=== PATIENT | male | born 1985 | race Caucasian/White ===

== ENCOUNTER 2019-03-05 17:56 | Inpatient (IN) ==
--- NOTE | 2019-03-05 18:34 | Emergency Department Note ---
Disposition Clinical Impression: Choledocholithiasis Pancreatitis Qualifiers: Chronicity: acute Pancreatitis type: biliary Acute pancreatitis complication: unspecified Qualified Code(s): K85.10 - Biliary acute pancreatitis without necrosis or infection Disposition: Admitted As Inpatient Condition: Fair Forms: ED Satisfaction Letter, Work/School Release Time of Disposition: 20:21 Abdominal Pain HPI - General Chief Complaint: ED Abdominal Pain Stated Complaint: abd pain Time Seen by Provider: 03/05/19 18:18 Source: patient, family Mode of arrival: private vehicle Limitations: no limitations Nursing Notes Reviewed: Yes Vital Signs Reviewed: Yes - History of Present Illness HPI Narrative: Patient notes ongoing epigastric pain for 6 months. Pain is not daily and waxes and wanes. Localized to his epigastrium. He does occasionally note in indigestion-like sensation with acid radiating into his chest. He previously was prescribed Zantac and Carafate with only modest relief He has previously had a gallbladder ultrasound and upper endoscopy. The latter of which showed "inflammation." Just prior to arrival the patient had excruciating epigastric pain that brought him to his knees. He states he became diaphoretic and had tingling in his extremities. Pain has mostly improved Pt Subjective Complaint: abdominal pain Onset (ago): month(s) Consistency: intermittent Location: epigastric Pain Severity: severe Pain Scale: 4 Quality: aching, sharp Radiation: none Migration to: other (Chest) Improves with: nothing Worsens with: other (Was made worse with dairy products previously) Associated symptoms: Reports: denies other symptoms Treatments prior to arrival: other (H2-blockers and Carafate prescribed previously.) - Related Data Previous Rx's Medication Instructions Recorded Cyclobenzaprine [Flexeril] 10 mg PO TID PRN #15 tablet 12/25/16 Ibuprofen [Motrin] 600 mg PO Q8HR PRN #20 tab 12/25/16 Allergies Allergy/AdvReac Type Severity Reaction Status Date / Time No Known Allergies Allergy Verified 04/07/17 16:14 All systems ED: reviewed and negative except as stated. Constitutional: Reports: weight change Eyes: Reports: as per HPI ENT ED: Reports: as per HPI Cardiovascular: Reports: as per HPI Respiratory: Reports: as per HPI Gastrointestinal: Reports: abdominal pain Genitourinary: Reports: as per HPI. Denies: testicular pain Musculoskeletal: Reports: as per HPI Integumentary: Reports: as per HPI Neurological: Reports: paresthesias Psychiatric: Reports: as per HPI Endocrine: Reports: as per HPI Hematological/Lymphatic: Reports: as per HPI Allergic/Immunologic: Reports: as per HPI Abdominal Pain PMH - Past Medical History Medical history: Reports: no medical history Male Surgical History: Reports: vasectomy, other Psychiatric history: Reports: no psych history - Social History Smoking status: Current some day smoker Alcohol use: Reports: rarely Drug use: Reports: marijuana, methamphetamine, IV Drug Use, prescription drug abuse, other Physical Exam - General Limitations: no limitations General appearance: alert - Head Head exam: atraumatic - Eye Eye exam: Present: normal appearance - ENT ENT exam: normal exam - Neck Neck exam: Present: normal inspection, full ROM - Chest Chest inspection: Present: normal inspection, symmetric chest wall rise - Respiratory Respiratory exam: Present: normal lung sounds bilaterally - Cardiovascular Cardiovascular exam: Present: regular rate, normal rhythm - Abdominal Exam Abdominal exam: Present: soft, Non-Tender, normal bowel sounds. Absent: tenderness, distention, guarding, rebound - Rectal Exam Rectal exam: Present: deferred - Extremities Exam Extremities exam: Present: normal inspection - Neurological Exam Neurological exam: Present: alert, oriented X3, CN II-XII intact - Psychiatric Psychiatric exam: Present: flat affect - Skin Skin exam: Present: warm, dry, intact Course Course Narrative: Patient presents with ongoing epigastric abdominal pain. He has a benign exam but seems frustrated due to the chronicity of his discomfort. He states it is interfering with his ability to eat and he is now losing weight. I favor gastritis versus peptic ulcer disease as the etiology of his symptoms. His recent upper endoscopy within the past 6 months results are not available as they were performed at an outside hospital. This is also true for his gallbladder ultrasound. During today's visit I have offered lab query with attention to pancreatic enzyme. I will also perform a CT scan of his abdomen and pelvis. Analgesics were offered but declined Vital Signs Temperature 97.8 F 03/05/19 18:06 Pulse Rate 70 03/05/19 18:06 Respiratory Rate 14 03/05/19 18:06 Blood Pressure 100/67 03/05/19 18:06 O2 Sat by Pulse Oximetry 99 03/05/19 18:06 Temperature 97.8 F 03/05/19 18:33 Pulse Rate 70 03/05/19 18:33 Respiratory Rate 14 03/05/19 18:33 Blood Pressure 100/67 03/05/19 18:33 O2 Sat by Pulse Oximetry 99 03/05/19 18:33 Oxygen Delivery Oxygen Delivery Room Air Abdominal Pain - Medical Records Medical records reviewed: Yes I reviewed the patient's medical records. - Lab Data Lab results reviewed: Yes I reviewed the patient's lab results. Result diagrams: 03/05/19 19:06 03/05/19 19:06 Lab Results 03/05/19 03/05/19 Range/Units 19:06 19:06 WBC 10.1 (4.3-11.1) K/mcL RBC 4.66 (4.19-5.50) M/mcL Hgb 13.4 (12.9-16.9) g/dL Hct 41.0 (37.5-50.1) % MCV 88.0 (83.0-100.0) fL MCH 28.8 (28.0-33.3) pg MCHC 32.7 (31.6-35.5) g/dL RDW 12.9 (11.5-14.5) % Plt Count 190 (140-400) K/mcL MPV 10.1 (9.4-12.4) fL Immature Gran % 0.3 (0-4) % Seg Neutrophils % 81.2 % Lymphocytes % 8.7 % Monocytes % 9.0 % Eosinophils % 0.4 % Basophils % 0.4 % Neutrophils # 8.2 (1.6-8.9) K/mcL Lymphocytes # 0.9 (0.6-4.6) K/mcL Monocytes # 0.9 (0.0-1.3) K/mcL Eosinophils # 0.0 (0.0-0.6) K/mcL Basophils # 0.0 (0.0-0.2) K/mcL Sodium 138 (136-145) mEq/L Potassium 3.8 (3.5-5.1) mEq/L Chloride 103 (98-107) mEq/L Carbon Dioxide 30 H (23-29) mEq/L BUN 18 (6-20) mg/dL Creatinine 0.79 (0.70-1.30) mg/dL Est GFR ( Amer) > 60 (> 60) Est GFR (Non-Af Amer) > 60 (> 60) BUN/Creatinine Ratio 23 (6-26) Glucose 91 (70-105) mg/dL Calculated Osmolality 287 (280-300) Calcium 9.7 (8.6-10.3) mg/dL Total Bilirubin 1.7 H (0.3-1.0) mg/dL AST 79 H (13-39) Units/L ALT 167 H (7-52) Units/L Alkaline Phosphatase 134 H (34-104) Units/L Serum Total Protein 7.3 (6.4-8.9) g/dL Albumin 4.5 (3.5-5.7) g/dL Globulin 2.8 (2.4-3.5) g/dL Albumin/Globulin Ratio 1.6 (1.1-2.2) Lipase > 1800 H (11-82) Units/L - Radiology Data Radiology results reviewed: Yes I reviewed the patient's radiology results.
[2019-03-05 19:32] LABS: Basophils % 0.4 %; Eosinophils % 0.4 %; Hemoglobin 13.4 g/dL (12.9-16.9); Immature Granulocytes % 0.3 % (0-4); Lymphocytes # 0.9 K/mcL (0.6-4.6); Lymphocytes % 8.7 %; Mean Corpuscular HGB Conc 32.7 g/dL (31.6-35.5); Mean Corpuscular Hemoglobin 28.8 pg (28.0-33.3); Mean Platelet Volume 10.1 fL (9.4-12.4); Monocytes # 0.9 K/mcL (0.0-1.3); Neutrophils # 8.2 K/mcL (1.6-8.9); Platelet Count 190 K/mcL (140-400); Red Blood Count 4.66 M/mcL (4.19-5.50); Red Cell Distribution Width 12.9 % (11.5-14.5); Segmented Neutrophils % 81.2 %; White Blood Count 10.1 K/mcL (4.3-11.1)
[2019-03-05 19:47] LABS: Alanine Aminotransferase 167 Units/L (7-52); Albumin 4.5 g/dL (3.5-5.7); Albumin/Globulin Ratio 1.6 (1.1-2.2); Alkaline Phosphatase 134 Units/L (34-104); Aspartate Amino Transferase 79 Units/L (13-39); BUN/Creatinine Ratio 23 (6-26); Bilirubin,Total 1.7 mg/dL (0.3-1.0); Blood Urea Nitrogen 18 mg/dL (6-20); Calcium 9.7 mg/dL (8.6-10.3); Carbon Dioxide 30 mEq/L (23-29); Chloride 103 mEq/L (98-107); Globulin 2.8 g/dL (2.4-3.5); Glucose 91 mg/dL (70-105); Osmolality,Calculated 287 (280-300); Potassium 3.8 mEq/L (3.5-5.1); Sodium 138 mEq/L (136-145); Total Protein 7.3 g/dL (6.4-8.9); eGFR For African Americans > 60 (> 60); eGFR For Non-African Americans > 60 (> 60)
[2019-03-05 19:59] LABS: Lipase > 1800 Units/L (11-82)
[2019-03-05] MEDS ORDERED: Ondansetron 4 MG/2 ML VIAL IVP PRN (21:00)
[2019-03-05] MEDS ORDERED: Ketorolac 30 MG/ML VIAL IVP PRN (21:01)
[2019-03-05] MEDS ORDERED: OXYCODONE Oral CONC 10 MG/0.5 ML ORAL.SYG SL PRN (21:01)
[2019-03-05] MEDS ORDERED: Naloxone 0.4 MG/ML INJ IVP PRN (21:01)
[2019-03-05 21:34] LABS: Ethanol < 10 mg/dL (Less than 10)
[2019-03-05 21:44] LABS: Amphetamine Screen,Urine Negative ng/mL (Cutoff=1000); Barbiturate Screen,Urine Negative ng/mL (Cutoff=200); Benzodiazepines Screen,Urine Negative ng/mL (Cutoff=200); Cannabinoid Screen,Urine Negative ng/mL (Cutoff = 50); Cocaine Screen,Urine Negative ng/mL (Cutoff= 300); Opiate Screen,Urine Negative ng/mL (Cutoff=300); Phencyclidine Screen,Urine Negative ng/mL (Cutoff=25)
--- NOTE | 2019-03-05 22:02 | Internal Med History&Physical ---
Date of Encounter: 03/05/19 Time of Encounter: 22:01 Internal Medicine - H&P: HPI Chief complaint: abdominal pain Admitted From: Home Plans for Post Hospital Care: Home History of present illness: Florin Peterson is a 33 year man who has been dealing with abdominal pain for the past 6 months, predominantly epigastric and occasionally in the right upper quadrant. It is frequently postprandial which has caused some weight loss from avoidance of food. It is occasionally associated with nausea. He takes OTC antacids for relief usually. He reports having undergone endoscopy and ultrasound for evaluation of this problem but were unrevealing. He came in today with an acute episode of severe epigastalgia that led him to become diaphoretic. He says it has been present for the past 4 days but this morning it hit him severely and knocked him down to his knees associated with tingling in his extremities, chills and feeling cold. In the ER he declined analgesics as it had improved but lab work revealed a lipase >1800. CT done was non-contrast and did not identify any anomalies however gallbladder ultrasound confirmed cholelithiasis. He is admitted for further care. No fever or chills reported. Vitals: Reviewed General: Well-developed, NAD Skin: Warm and dry. HEENT: Moist mucous membranes. No conjunctivae pallor. Neck: No lymphadenopathy. No JVD. No carotid bruits. No palpable thyroid. Chest: Normal thoracic expansion. Normal breath sounds. Clear to auscultation. Heart: Normal S1 & S2; rhythmic. No rubs or murmurs. Abdomen: Non-distended, soft and non-tender to palpation. No peritoneal react ion. Extremities: No clubbing, cyanosis or edema. No calf tenderness. Normal distal pulses. Neurological: Awake, alert and oriented to person, place and time. No focal deficits. Psych: Affect appropriate. Assessment/Plan 1. Acute pancreatitis: Patient denies alcohol use and therefore is not likely a trigger; will get a level to corroborate. Will also check triglyceride level. He has cholelithiasis on ultrasound and the pain has been intermittent for m onths so it is possible that he may be passing stones transiently and now has biliary pancreatitis. He will benefit from subsequent elective cholecystectomy. In the meantime, will provide fluid resuscitation, pain control, anti-emetics and advance diet as tolerated. 2. Hepatitis C: Cleared after treatment. Has SVR. 3. Substance use disorder: Denies recent use. Will check a UDS. 4. DVT prophylaxis: Ordered. Past Med Surg Social Fam HX - Past Medical History Medical history: no medical history Psychiatric history: no psych history - Past Surgical History Additional surgical history: wisdom teeth - Social History Smoking Status: Current some day smoker Smokeless Tobacco Status: Yes Alcohol use: rarely Drug use: marijuana, methamphetamine, IV Drug Use, prescription drug abuse, other Internal Medicine - H&P: Meds Cyclobenzaprine [Flexeril] 10 mg PO TID PRN #15 tablet 12/25/16 [Rx] Ibuprofen [Motrin] 600 mg PO Q8HR PRN #20 tab 12/25/16 [Rx] Allergy/AdvReac Type Severity Reaction Status Date / Time No Known Allergies Allergy Verified 04/07/17 16:14 All Systems PM: A 10-system review of systems was performed and is negative for pertinent findings except as documented above in the HPI. Family history reviewed and found non-contributory. - Constitutional Vitals: Temp Pulse Resp BP Pulse Ox 97.8 F 70 16 108/70 99 03/05/19 18:33 03/05/19 18:33 03/05/19 21:48 03/05/19 21:48 03/05/19 18:33 Exam: . Internal Med - H&P Results - Labs CBC & Chem 7: 03/05/19 19:06 03/05/19 19:06 Labs: Short CBC 03/05/19 Range/Units 19:06 WBC 10.1 (4.3-11.1) K/mcL Hgb 13.4 (12.9-16.9) g/dL Hct 41.0 (37.5-50.1) % Plt Count 190 (140-400) K/mcL Neutrophils # 8.2 (1.6-8.9) K/mcL BMP 03/05/19 19:06 Sodium 138 Potassium 3.8 Chloride 103 Carbon Dioxide 30 H BUN 18 Creatinine 0.79 Glucose 91 Calcium 9.7 Liver Function 03/05/19 Range/Units 19:06 Total Bilirubin 1.7 H (0.3-1.0) mg/dL AST 79 H (13-39) Units/L ALT 167 H (7-52) Units/L Alkaline Phosphatase 134 H (34-104) Units/L Albumin 4.5 (3.5-5.7) g/dL - Impressions ITS Impressions Abdomen/Pelvis CT 03/05/19 18:30 IMPRESSION: Punctate nonobstructing calculus mid to lower pole left kidney otherwise negative noncontrast CT examination with no evidence of obstructive uropathy or other acute process including normal appendix. D/ / Kirill Coughlin MD / Kirill Coughlin MD Interpreting Provider: Kirill Coughlin MD Gallbladder Ultrasound 03/05/19 19:50 IMPRESSION: Cholelithiasis as described, otherwise negative right upper quadrant ultrasound. D/ / Kirill Coughlin MD / Kirill Coughlin MD Interpreting Provider: Kirill Coughlin MD - Time Spent With Patient Total time spent is greater than 50% in coordination of care (as documented) at patient's floor/unit and/or counseling patient: Greater than 35 minutes
[2019-03-05] MEDS: Ringers Solution, Lactated 1,000 ML IVC SCH (23:38)
[2019-03-06] MEDS: Ringers Solution, Lactated 1,000 ML IVC SCH ×4 (04:43→20:00)
[2019-03-06] MEDS: Pantoprazole 40 MG VIAL IVP SCH ×2 (05:30→07:49)
[2019-03-06 06:48] LABS: Prothrombin Time 11.9 Seconds (9.4-12.1)
[2019-03-06 06:51] LABS: Activated Partial Thrombo Time 32.1 Seconds (26.0-36.0)
[2019-03-06 07:00] LABS: Alanine Aminotransferase 140 Units/L (7-52); Albumin 4.4 g/dL (3.5-5.7); Albumin/Globulin Ratio 1.5 (1.1-2.2); Alkaline Phosphatase 139 Units/L (34-104); Aspartate Amino Transferase 57 Units/L (13-39); BUN/Creatinine Ratio 20 (6-26); Bilirubin,Direct 0.3 mg/dL (0.0-0.2); Bilirubin,Total 1.3 mg/dL (0.3-1.0); Blood Urea Nitrogen 14 mg/dL (6-20); Calcium 9.7 mg/dL (8.6-10.3); Carbon Dioxide 24 mEq/L (23-29); Chloride 103 mEq/L (98-107); Globulin 2.9 g/dL (2.4-3.5); Glucose 82 mg/dL (70-105); Magnesium 1.9 mg/dL (1.6-2.6); Osmolality,Calculated 286 (280-300); Potassium 3.6 mEq/L (3.5-5.1); Sodium 138 mEq/L (136-145); Total Protein 7.3 g/dL (6.4-8.9); Triglycerides 160 mg/dL (< 150); eGFR For African Americans > 60 (> 60); eGFR For Non-African Americans > 60 (> 60)
[2019-03-06] MEDS: *HR* Buprenorphine HCl 8 MG TAB.SUBL SL SCH ×2 (07:50→20:00)
--- NOTE | 2019-03-06 09:18 | Internal Med Progress Note ---
Hospitalist Progress Note - Encounter Date of Encounter: 03/06/19 Time of Encounter: 09:18 - Subjective Interval History: Patient was seen and examined at bedside currently pain is controlled-was evaluated by GI services patient okay to send I should this time. Discussed treatment plan with the patient- including possible surgery - who verbalized understanding-patient will require greater than 2 midnights for treatment and will be placed inpatient status - Exam Vitals: Temp Pulse Resp BP Pulse Ox 97.6 F 61 17 100/53 98 03/06/19 07:06 03/06/19 07:06 03/06/19 07:06 03/06/19 07:06 03/06/19 07:06 Exam: Skin: Free of rash and discoloration. Eyes: Sclera is white. There is no discharge from eyes. ENMT: Oral/pharyngeal mucosa is normal in appearance. There is no discharge from nose or ears. Respiratory: Normal breath sounds with no crackles and wheezes bilaterally. CV: Heart is regular with no gallop or murmur. GI: Abdomen is flat and soft with no palpable mass or visceromegaly. : There is no tenderness in patient's flanks bilaterally. Neuro exam: He has good strength in upper and lower extremities. He has normal eye movements. Psychiatric: He has normal affect. His thought process is appropriate to the situation. - Assessment and Plan (1) Pancreatitis Current Visit: Yes Status: Acute Assessment and Plan: On presentation lipase greater than 1800, triglyceride 160 ETOH negative - gallbladder ultrasound shows cholelithiasis, Multiple small mobile shadowing echogenic foci consistent with gallstones, CBD 4 mm - CT A/P with nonobstructing calculus and left kidney GI consulted and appreciate recommendations Suspect secondary to gallstones Will consult surgery Continue with IV fluids antiemetics and current pain medications We will initiate on ice chips and advance diet as tolerated (2) Choledocholithiasis Current Visit: Yes Status: Acute Assessment and Plan: Patient has been experiencing epigastric abdominal pain the past 6 months which is worse after eating. He has lost weight from avoidance of food. He has taken OTC antacids without any relief On presentation lipase greater than 1800, triglyceride 160 ETOH negative - gallbladder ultrasound shows cholelithiasis, Multiple small mobile shadowing echogenic foci consistent with gallstones, CBD 4 mm - CT A/P with nonobstructing calculus and left kidney Surgery consulted and appreciate recommendations patient nothing by mouth at this time for possible surgery.-Originally patient was ice chips we will advance as tolerated-he did have a Jell-O and broth advised patient to not eating more continue with nothing by mouth (3) Hepatitis C Current Visit: No Status: Chronic Assessment and Plan: Past history cleared after treatment (4) Substance abuse Current Visit: Yes Status: Acute Assessment and Plan: History of substance abuse denies any recent use urine tox screen negative (5) DVT prophylaxis Current Visit: Yes Status: Acute Assessment and Plan: SCD - Time Spent with Patient Total time spent is greater than 50% in coordination of care (as documented) at patient's floor/unit and/or counseling patient: Internal Medicine: Result - Labs CBC & Chem 7: 03/05/19 19:06 03/06/19 04:58 Labs: Short CBC 03/05/19 Range/Units 19:06 WBC 10.1 (4.3-11.1) K/mcL Hgb 13.4 (12.9-16.9) g/dL Hct 41.0 (37.5-50.1) % Plt Count 190 (140-400) K/mcL Neutrophils # 8.2 (1.6-8.9) K/mcL BMP 03/05/19 03/06/19 19:06 04:58 Sodium 138 138 Potassium 3.8 3.6 Chloride 103 103 Carbon Dioxide 30 H 24 BUN 18 14 Creatinine 0.79 0.71 Glucose 91 82 Calcium 9.7 9.7 Liver Function 03/05/19 03/06/19 Range/Units 19:06 04:58 Total Bilirubin 1.7 H 1.3 H (0.3-1.0) mg/dL Direct Bilirubin 0.3 H (0.0-0.2) mg/dL AST 79 H 57 H (13-39) Units/L ALT 167 H 140 H (7-52) Units/L Alkaline Phosphatase 134 H 139 H (34-104) Units/L Albumin 4.5 4.4 (3.5-5.7) g/dL - ABG Interpretation ABG results: PT/INR, D-dimer PT 11.9 Seconds (9.4-12.1) 03/06/19 04:58 - Impressions Impressions Abdomen/Pelvis CT 03/05/19 18:30 IMPRESSION: Punctate nonobstructing calculus mid to lower pole left kidney otherwise negative noncontrast CT examination with no evidence of obstructive uropathy or other acute process including normal appendix. D/ / Kirill Coughlin MD / Kirill Coughlin MD Interpreting Provider: Kirill Coughlin MD Gallbladder Ultrasound 03/05/19 19:50 IMPRESSION: Cholelithiasis as described, otherwise negative right upper quadrant ultrasound. D/ / Kirill Coughlin MD / Kirill Coughlin MD Interpreting Provider: Kirill Coughlin MD Consult Discharge Plan - Plan Referrals: NONE,PCP [Primary Care Provider] - (1) Pancreatitis Qualifiers: Chronicity: acute Pancreatitis type: biliary Acute pancreatitis complication: unspecified Qualified Code(s): K85.10 - Biliary acute pancreatitis without necrosis or infection (3) Hepatitis C Qualifiers: Viral hepatitis chronicity: chronic
[2019-03-06] MEDS ORDERED: Ringers Solution, Lactated 1,000 ML IVC SCH (12:15)
--- NOTE | 2019-03-06 12:49 | Gastroenterology Consult Note ---
<Carlyle Palencia - Last Filed: 03/06/19 12:46> Date of Encounter: 03/06/19 Time of Encounter: 10:30 - Assessment and plan (1) Pancreatitis Status: Acute Assessment and plan: Likely secondary to gallstones. Gallbladder ultrasound shows cholelithiasis, CBD [address] A/P with nonobstructing calculus in the left kidney. In the ER lipase >1800, triglycerides 160, ETOH negative. Check JAVIER, IgG4. Continue IV fluids, anti-emetics, and pain control. Slowly advance diet as tolerated, start with ice chips. Qualifiers: Chronicity: acute Pancreatitis type: biliary Acute pancreatitis complication: unspecified Qualified Code(s): K85.10 - Biliary acute pancreatitis without necrosis or infection - Time Spent With Patient Total time spent is greater than 50% in coordination of care (as documented) at patient's floor/unit and/or counseling patient: GI History of Present Illness - Data of Consult Patient: new to practice Consult date: 03/06/19 Requesting Physician: Jackson Klein MD - Consult Narrative Reason for consult: Gallstone pancreatitis History of present illness: Mr. Peterson is a 33 year old male with PMHx hepatitis C who presented to the hospital with 6 month history of epigastric abdominal pain. The pain is worsened with eating. He reports having undergone endoscopy and ultrasound for evaluation of this problem but were unrevealing. He states pain has worsened over the past 4-5 days. He denies alcohol use. Gallbladder ultrasound shows cholelithiasis, CBD [address] A/P with nonobstructing calculus in the left kidney. In the ER lipase >1800, triglycerides 160, ETOH negative. This morning, he denies any nausea, vomiting, or abdominal pain. Procedure: Recent EGD normal at outside hospital. NSAIDs: Ibuprofen Anticoagulation: None Past Med Surg Social Fam HX - Past Medical History Medical history: no medical history Psychiatric history: no psych history - Past Surgical History Additional surgical history: wisdom teeth - Social History Smoking Status: Current some day smoker Smokeless Tobacco Status: Yes Alcohol use: rarely Drug use: marijuana, methamphetamine, IV Drug Use, prescription drug abuse, other - Gastrointestinal Gastrointestinal: Present: as per HPI - Constitutional Constitutional: as per HPI - EENT Eyes: as per HPI Ears: Present: as per HPI Nose, mouth and throat: Present: as per HPI - Cardiovascular Cardiovascular ROS: Present: as per HPI - Respiratory Respiratory IM: Present: as per HPI - Genitourinary Genitourinary: Absent: change in color, Urinary frequency - Neurological ROS Neurological GI: Present: as per HPI - Hematologic/Lymphatic Hematologic/Lymphatic pediatric: Present: as per HPI - Musculoskeletal Musculoskeletal ROS GI: Present: as per HPI - Integumentary Integumentary GI: Present: as per HPI - Psychiatric ROS Psychiatric GI: Present: as per HPI - Endocrine Endocrine IM: Present: as per HPI - Constitutional Vitals: Temp Pulse Resp BP Pulse Ox 97.9 F 60 18 100/62 99 03/06/19 11:21 03/06/19 11:21 03/06/19 11:21 03/06/19 11:21 03/06/19 11:21 General appearance: Present: cooperative, A&O X 3, no acute distress, answers questions appropriately - Head Head exam: Present: atraumatic, normocephalic - Eye Eye exam: Present: normal appearance, sclera anicteric - ENT ENT exam: Present: mucous membranes dry - Neck Neck exam general surgery: Present: normal inspection, trachea midline - Respiratory Respiratory exam: Present: CTAB. Absent: rales, rhonchi - Cardiovascular Cardiovascular exam: Present: RRR, +S1, +S2 - GI/Abdominal GI/Abdominal exam: Present: soft, no peritoneal signs. Absent: distended, firm, guarding, tenderness - Rectal Rectal exam: Present: deferred - Extremities Exam Extremities exam: Present: warm - Neurological Exam Neurological exam: Present: no focal deficits - Psychiatric Psychiatric exam: Present: normal affect, normal mood - Skin Skin exam: Present: dry, intact, normal color, warm Results - Labs CBC & Chem 7: 03/05/19 19:06 03/06/19 04:58 Labs: Last Result 03/06/19 04:58 Calcium 9.7 Triglycerides 160 H Entire Visit 03/06/19 03/06/19 04:58 04:58 PT 11.9 Total Bilirubin 1.3 H AST 57 H ALT 140 H - ABG ABG results: PT/INR, D-dimer PT 11.9 Seconds (9.4-12.1) 03/06/19 04:58 - Impressions Impressions Abdomen/Pelvis CT 03/05/19 18:30 IMPRESSION: Punctate nonobstructing calculus mid to lower pole left kidney otherwise negative noncontrast CT examination with no evidence of obstructive uropathy or other acute process including normal appendix. D/ / Kirill Coughlin MD / Kirill Coughlin MD Interpreting Provider: Kirill Coughlin MD Gallbladder Ultrasound 03/05/19 19:50 IMPRESSION: Cholelithiasis as described, otherwise negative right upper quadrant ultrasound. D/ / Kirill Coughlin MD / Kirill Coughlin MD Interpreting Provider: Kirill Coughlin MD Consult Discharge Plan - Plan Instructions: Laparoscopic Cholecystectomy (DC) Additional Instructions: General Surgical Discharge Instructions 1. No pushing, pulling, or lifting greater than 15 lbs for 2-4 weeks (depending upon procedure). 2. You may shower beginning today, but no tub baths, soaking, or swimming for 2 weeks. 3. You may resume driving when you are off narcotics and are safe to react in a car. 4. Take ibuprofen every 8 hours for discomfort. Take your chronic suboxone as directed. 5. Take stool softeners (Colace) or a water based laxative (Miralax) while taking narcotics. You may hold for loose stools. 6. Report any fevers greater than 100.5F, increase abdominal discomfort, drai nage that looks like pus, increased redness or pain at the surgical site, or any vomiting. 7. Report any pain in the calves, shortness of breath, or rapid heartbeat. 8. Follow-up in the office as directed. 9. If you were prescribed antibiotics, do not stop them without talking to your provider. Referrals: Naty Fox [Partnered Physician] - 03/27/19 8:30 am Alessia Oliver, GOVERNMENT AFFAIRS SPECIALIST [Advanced Practice Nurse] - Prescriptions: Ciprofloxacin [Cipro] 500 mg PO BID 7 Days #14 tablet Ibuprofen 800 mg PO Q8H PRN #30 tablet PRN Reason: Postsurgical pain <Dionicio Mixon - Last Filed: 03/14/19 07:25> Date of Encounter: 03/06/19 - Time Spent With Patient Total time spent is greater than 50% in coordination of care (as documented) at patient's floor/unit and/or counseling patient: GI History of Present Illness - Data of Consult Requesting Physician: Jackson Klein MD - Consult Narrative History of present illness: Mr. Peterson is a 33 year old male - Constitutional Vitals: Temp Pulse Resp BP Pulse Ox 98.3 F 78 16 110/62 99 03/08/19 10:31 03/08/19 10:31 03/08/19 10:31 03/08/19 10:31 03/08/19 10:31 Results - Labs CBC & Chem 7: 03/08/19 04:30 03/08/19 04:30 - ABG ABG results: PT/INR, D-dimer PT 11.9 Seconds (9.4-12.1) 03/06/19 04:58 - Attending Attestation Patient with chronic hepatitis C and several month history of post prandial pain presents with gallstone pancreatitis. Recommend cholecystectomy. Liver biopsy during cholecystectomy. Follow up as outpatient I have personally performed a face to face evaluation on this patient. I have reviewed and agree with the care plan. History and Exam by me shows:
--- NOTE | 2019-03-06 15:11 | AcuteCare Surgery Consult Note ---
Date of Encounter: 03/06/19 Time of Encounter: 15:00 Assessment and Plan (1) Acute gallstone pancreatitis Current Visit: Yes Status: Acute Pt diagnosis of acute gallstone pancreatitis is discussed. Laparoscopic Cholecystectomy with IOC is recommended. Procedure for the surgery, risks and benefits are discussed in detail. Possible known complications for Laparoscopic Cholecystectomy are bleeding, infection, bile duct injury, bile leak, small intestine or stomach injury, stroke, DVT/PE, RI or . Pt understands these risks, which in this case are . Pt wishes to proceed with surgery as soon as possible. Informed consent is obtained. Pt condition is stable. Surgery is scheduled. History of Present Illness Consult date: 03/06/19 Reason for consult: abdominal pain Requesting physician: Bekah Aldridge History of present illness: This 33y/o male pt presents to [facility] c/o severe upper abdominal pain; RUQ = LUQ. Pt reports pain is severe and unrelenting. Pt c/o epigastric pain as well. Pt reports pain radiates into back. Pt reports intractible nausea and vomiting. Pt denies changes in BM. Pt denies CP or SOB. Pt denies fever. +Appetite Past Med Surg Social Fam HX - Past Medical History Medical history: no medical history Psychiatric history: no psych history - Past Surgical History Additional surgical history: wisdom teeth - Social History Smoking Status: Current some day smoker Smokeless Tobacco Status: Yes Alcohol use: rarely Drug use: marijuana, methamphetamine, IV Drug Use, prescription drug abuse, oth er Medications and Allergies Buprenorphine HCl/Naloxone HCl [Buprenorphin-Naloxon 8-2 mg Sl] 1 tab PO BID 03/06/19 [History] Ranitidine HCl [Zantac 75] 75 mg PO DAILY PRN 03/06/19 [History] Simethicone [Gas-X] 80 mg PO PRN PRN 03/06/19 [History] Allergy/AdvReac Type Severity Reaction Status Date / Time No Known Allergies Allergy Verified 03/06/19 14:35 Review of Systems All systems PM: The remainder of the systems were reviewed and are negative - Constitutional no anorexia, no chills, no fatigue, no fever(s), no night sweats, no weakness - EENT Nose, mouth and throat: dry mouth, no dizziness, no nasal congestion, no nasal discharge, no sinus pain, no sinus pressure, no sore throat - Cardiovascular no chest pain, no diaphoresis, no dyspnea, no edema - Respiratory no cough, no dyspnea, no wheezing - Gastrointestinal abdominal pain, bloating, cramping, heartburn, nausea, vomiting, no constipation, no diarrhea - Genitourinary no dysuria, no flank pain, no urinary frequency - Musculoskeletal back pain, no joint swelling, no limited range of motion, no neck pain - Integumentary no dry skin, no pruritus, no rash, no wounds, no jaundice - Neurological no confusion, no dizziness, no focal weakness, no weakness - Psychiatric no anxiety, no depression - Endocrine no fatigue - Hematologic/Lymphatic no easy bleeding, no easy bruising General Surgery Exam Initial Vital Signs Temp Pulse Resp BP Pulse Ox 97.8 F 70 14 100/67 99 03/05/19 18:06 03/05/19 18:06 03/05/19 18:06 03/05/19 18:06 03/05/19 18:06 - General physical appearance well developed, well nourished, no distress, moderate pain. negative: jaundice - Eyes PERRL, normal ocular movement. negative: icteric - ENT no congestion, dry mucosa. negative: nasal discharge - Neck no masses, trachea midline, no lymphadectomy, no venous distension - Respiratory normal respiratory effort, clear to auscultation - Cardiovascular Cardiovascular exam: Present: RRR. Absent: murmurs - Abdomen Abdomen general surgery: Present: bowel sounds present, soft, tender. Absent: distended, guarding, rebound Abdominal Tenderness: Present: RUQ - Genitourinary Present: normal penis with no external lesions - Integumentary Integumentary general surgery: Present: warm and dry - Neurologic Present: CN 2-12 grossly intact - Musculoskeletal Present: normal posture - Psychiatric Psychiatric general surgery: Present: A&Ox3, appropriate Exam Initial Vital Signs Temp Pulse Resp BP Pulse Ox 97.8 F 70 14 100/67 99 03/05/19 18:06 03/05/19 18:06 03/05/19 18:06 03/05/19 18:06 03/05/19 18:06 Results - Labs 03/05/19 19:06 03/06/19 04:58 Abnormal lab results Carbon Dioxide 30 mEq/L (23-29) H 03/05/19 19:06 1.3 mg/dL (0.3-1.0) H 03/06/19 04:58 0.3 mg/dL (0.0-0.2) H 03/06/19 04:58 AST 57 Units/L (13-39) H 03/06/19 04:58 ALT 140 Units/L (7-52) H 03/06/19 04:58 139 Units/L (34-104) H 03/06/19 04:58 Triglycerides 160 mg/dL (< 150) H 03/06/19 04:58 > 1800 Units/L (11-82) H 03/05/19 19:06 Diabetes panel 03/05/19 03/06/19 Range/Units 19:06 04:58 Sodium 138 138 (136-145) mEq/L Potassium 3.8 3.6 (3.5-5.1) mEq/L Chloride 103 103 (98-107) mEq/L Carbon Dioxide 30 H 24 (23-29) mEq/L BUN 18 14 (6-20) mg/dL Creatinine 0.79 0.71 (0.70-1.30) mg/dL Glucose 91 82 (70-105) mg/dL Calcium 9.7 9.7 (8.6-10.3) mg/dL AST 79 H 57 H (13-39) Units/L ALT 167 H 140 H (7-52) Units/L Alkaline Phosphatase 134 H 139 H (34-104) Units/L Albumin 4.5 4.4 (3.5-5.7) g/dL Triglycerides 160 H (< 150) mg/dL Calcium panel 03/05/19 03/06/19 Range/Units 19:06 04:58 Calcium 9.7 9.7 (8.6-10.3) mg/dL Albumin 4.5 4.4 (3.5-5.7) g/dL Pituitary panel 03/05/19 03/06/19 Range/Units 19:06 04:58 Sodium 138 138 (136-145) mEq/L Potassium 3.8 3.6 (3.5-5.1) mEq/L Chloride 103 103 (98-107) mEq/L Carbon Dioxide 30 H 24 (23-29) mEq/L BUN 18 14 (6-20) mg/dL Creatinine 0.79 0.71 (0.70-1.30) mg/dL Glucose 91 82 (70-105) mg/dL Calcium 9.7 9.7 (8.6-10.3) mg/dL Adrenal panel 03/05/19 03/06/19 Range/Units 19:06 04:58 Sodium 138 138 (136-145) mEq/L Potassium 3.8 3.6 (3.5-5.1) mEq/L Chloride 103 103 (98-107) mEq/L Carbon Dioxide 30 H 24 (23-29) mEq/L BUN 18 14 (6-20) mg/dL Creatinine 0.79 0.71 (0.70-1.30) mg/dL Glucose 91 82 (70-105) mg/dL Calcium 9.7 9.7 (8.6-10.3) mg/dL Total Bilirubin 1.7 H 1.3 H (0.3-1.0) mg/dL AST 79 H 57 H (13-39) Units/L ALT 167 H 140 H (7-52) Units/L Alkaline Phosphatase 134 H 139 H (34-104) Units/L Albumin 4.5 4.4 (3.5-5.7) g/dL All other labs normal. - Imaging CT scan - abdomen: image reviewed CT scan - pelvis: image reviewed US - abdomen: image reviewed Consult Discharge Plan - Plan Referrals: NONE,PCP [Primary Care Provider] -
--- NOTE | 2019-03-06 17:19 | Anesthesia Evaluation PreOp ---
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 History: Other (HISTORY OF POLY DRUG ABUSE, CLEAN FOR 1 YEAR, ON SUBOXONE) Other Medical History: Hepatic (PANCREATITIS, NON OBSTRUCTIVE CBD STONE) Alcohol Use: rarely Medications and Allergies Buprenorphine HCl/Naloxone HCl [Buprenorphin-Naloxon 8-2 mg Sl] 1 tab PO BID 03/06/19 [History] Ranitidine HCl [Zantac 75] 75 mg PO DAILY PRN 03/06/19 [History] Simethicone [Gas-X] 80 mg PO PRN PRN 03/06/19 [History] Allergy/AdvReac Type Severity Reaction Status Date / Time No Known Allergies Allergy Verified 03/06/19 14:35 - Meds/Allergy Pre-op Review Medications Reviewed: Yes Allergies Reviewed: Yes Anesthesia Results - Labs 03/05/19 19:06 03/06/19 04:58 Laboratory Tests 03/05/19 03/05/19 03/06/19 19:06 21:23 04:58 PT INR Est GFR (Non-Af Amer) > 60 Calcium 9.7 Magnesium 1.9 Total Bilirubin 1.3 H Direct Bilirubin 0.3 H AST 57 H ALT 140 H Alkaline Phosphatase 139 H Serum Total Protein 7.3 Albumin 4.4 Triglycerides 160 H Lipase > 1800 H Urine Opiates Screen Negative Ur Barbiturates Screen Negative Ur Phencyclidine Scrn Negative Ur Amphetamines Screen Negative U Benzodiazepines Scrn Negative Urine Cocaine Screen Negative U Marijuana (THC) Screen Negative Ethyl Alcohol < 10 03/06/19 04:58 PT 11.9 INR 1.0 Est GFR (Non-Af Amer) Calcium Magnesium Total Bilirubin Direct Bilirubin AST ALT Alkaline Phosphatase Serum Total Protein Albumin Triglycerides Lipase Urine Opiates Screen Ur Barbiturates Screen Ur Phencyclidine Scrn Ur Amphetamines Screen U Benzodiazepines Scrn Urine Cocaine Screen U Marijuana (THC) Screen Ethyl Alcohol Anesthesia Exam Vital Signs/O2 Sat, Most Current Temp Pulse Resp BP Pulse Ox 98.3 F 48 16 99/58 94 03/06/19 15:09 03/06/19 15:09 03/06/19 15:09 03/06/19 15:09 03/06/19 15:09 Weight: 67 KG - BMI 20 NPO (# of Hours): >MN - HEENT Mallampati: I Teeth: Normal - Cardiac Rhythm: Regular - Pulmonary Breath Sounds: bilateral Clear Respiratory Effort: Symmetrical Anesthesia Assess/Plan ASA Score: 2 Anesthetic Plan: General Monitoring Plan: Standard Monitors Recovery Plan: PACU
[2019-03-07] MEDS: Ringers Solution, Lactated 1,000 ML IVC SCH ×2 (01:00→07:30)
[2019-03-07 05:57] LABS: Basophils % 0.4 %; Eosinophils # 0.1 K/mcL (0.0-0.6); Eosinophils % 2.8 %; Hematocrit 33.8 % (37.5-50.1); Immature Granulocytes % 0.2 % (0-4); Lymphocytes # 2.5 K/mcL (0.6-4.6); Lymphocytes % 52.9 %; Mean Corpuscular HGB Conc 32.5 g/dL (31.6-35.5); Mean Corpuscular Hemoglobin 28.8 pg (28.0-33.3); Mean Corpuscular Volume 88.5 fL (83.0-100.0); Mean Platelet Volume 9.9 fL (9.4-12.4); Monocytes # 0.5 K/mcL (0.0-1.3); Neutrophils # 1.6 K/mcL (1.6-8.9); Platelet Count 151 K/mcL (140-400); Red Blood Count 3.82 M/mcL (4.19-5.50); Red Cell Distribution Width 12.8 % (11.5-14.5); Segmented Neutrophils % 33.7 %
[2019-03-07 05:59] LABS: White Blood Count 4.7 K/mcL (4.3-11.1)
[2019-03-07 06:15] LABS: Alanine Aminotransferase 79 Units/L (7-52); Albumin 3.5 g/dL (3.5-5.7); Albumin/Globulin Ratio 1.6 (1.1-2.2); Alkaline Phosphatase 92 Units/L (34-104); Aspartate Amino Transferase 24 Units/L (13-39); BUN/Creatinine Ratio 11 (6-26); Bilirubin,Direct 0.3 mg/dL (0.0-0.2); Bilirubin,Indirect 0.8 mg/dL (0.0-1.2); Bilirubin,Total 1.1 mg/dL (0.3-1.0); Blood Urea Nitrogen 8 mg/dL (6-20); Carbon Dioxide 29 mEq/L (23-29); Chloride 107 mEq/L (98-107); Globulin 2.2 g/dL (2.4-3.5); Glucose 96 mg/dL (70-105); Osmolality,Calculated 286 (280-300); Potassium 3.6 mEq/L (3.5-5.1); Sodium 139 mEq/L (136-145); Total Protein 5.7 g/dL (6.4-8.9); eGFR For African Americans > 60 (> 60); eGFR For Non-African Americans > 60 (> 60)
[2019-03-07] MEDS: *HR* Buprenorphine HCl 8 MG TAB.SUBL SL SCH ×2 (07:47→20:08)
[2019-03-07] MEDS: Pantoprazole 40 MG VIAL IVP SCH (07:48)
--- NOTE | 2019-03-07 08:15 | Acute Care Surgery Event Note ---
Date of Encounter: 03/07/19 Time of Encounter: 08:15 Patient to go to OR today for laparoscopic cholecystectomy. He was initially scheduled for surgery yesterday but he had eaten.
[2019-03-07] MEDS ORDERED: Dexmedetomidine HCl 400 MCG/100 ML MLS IVC ONE (08:43)
[2019-03-07] MEDS ORDERED: KETAMINE HCL 50 MG/ML SYRINGE ONE (08:43)
[2019-03-07] MEDS ORDERED: Acetaminophen IV 1,000 MG/100 ML INFUS..BTL ONE (08:43)
[2019-03-07] MEDS ORDERED: Dexamethasone 4 MG/ML VIAL ONE (08:45)
[2019-03-07] MEDS ORDERED: Ondansetron 4 MG/2 ML VIAL ONE (08:45)
[2019-03-07] MEDS ORDERED: *HR* Midazolam HCl 2 MG/2 ML VIAL ONE (08:45)
[2019-03-07] MEDS ORDERED: *HR* Rocuronium Bromide 50 MG/5 ML VIAL ONE (08:45)
[2019-03-07] MEDS ORDERED: Bupivacaine/EPI 1:200k 0.5%PF 30 ML VIAL ONE (08:45)
[2019-03-07] MEDS ORDERED: *HR* FentaNYL (PF) 100 MCG/2 ML VIAL ONE (08:45)
[2019-03-07] MEDS ORDERED: *HR* Propofol 200 MG/20 ML VIAL IVP ONE (08:45)
[2019-03-07] MEDS ORDERED: Lidocaine -MPF 2% 2 ML VIAL ONE (08:45)
[2019-03-07] MEDS ORDERED: Isovue-300 50 ML VIAL ONE ×2 (08:46→10:04)
[2019-03-07] MEDS ORDERED: Lidocaine -MPF 4% 5 ML AMPUL ONE (08:46)
[2019-03-07] MEDS ORDERED: CefOXitin 2,000 MG VIAL ONE (09:06)
[2019-03-07] MEDS ORDERED: *HR* Magnesium Sulfate 1 GM/2 ML VIAL ONE (09:27)
[2019-03-07] MEDS ORDERED: Ketorolac 30 MG/ML VIAL ONE (09:34)
[2019-03-07] MEDS ORDERED: Neostigmine Methylsulfate 3 MG/3 ML SYRINGE ONE (09:39)
--- NOTE | 2019-03-07 10:30 | Operative Note ---
Date of procedure: 03/07/19 Pre-op diagnosis: Gallstone pancreatitis Post-op diagnosis: same Procedure: 1. Laparoscopic cholecystectomy with intraoperative cholangiogram. 2. Laparoscopic common bile duct exploration with removal of choledocholithiasis. Anesthesia: TERE Surgeon: Sonny Quiroga Was there an tutoring assistant present: No Estimated blood loss (cc): 8 Specimen: gallbladder and contents Condition: stable Disposition: PACU Procedure in Detail: Date of surgery: 03/07/19 After properly identifying the patient, the patient is brought to the operating room and placed in the supine position. After proper IV sedation was achieved followed by general endotracheal intubation, the patient's abdomen was prepped and draped in a normal sterile fashion. A timeout was performed noting the patient's name and type of procedure to be performed. Half percent Marcaine with epinephrine was used to infiltrate the epidermal, dermal, and subcutaneous tissue just below the umbilicus. An 11 blade scalpel was used to make an incision in this area down to the rectus fascia which was incised. Once the abdomen was opened a 12 mm port was placed through the incision and the abdomen was insufflated with carbon dioxide. A laparoscopic camera was placed through the port which showed no injury to the intra-abdominal organs upon entry. A subxiphoid 5 mm port and a right subcostal margin 5 mm port were then placed under direct camera visualization. The patient was placed in a reverse Trendelenburg position and the gallbladder was identified and retracted superiorly. The peritoneal covering overlying the cystic duct and cystic artery were then bluntly dissected with a [place] dissector. This allowed for visualization of a long cystic duct. The nontraumatic grasper was exchanged for a Batres grasper and a laparoscopic clip director of publications was used to place a clip distal on the long cystic duct near the infundibulum. Laparoscopic scissors were used to make an incision just proximal to the clip on the cystic duct and the cholangiogram catheter was introduced through the side-port of the Batres grasper and was placed through the opening. It was secured in place with a laparoscopic clip director of publications. Intraoperative cholangiogram demonstrated flow of contrast into the common bile duct and hepatic ducts. There was evidence of a filling defect near the level of the ampulla. Flushing of the common bile duct with water and then contrast failed to remove this filling defect or choledocholithiasis. The cholangiogram catheter was then formally removed and a glide catheter with a 0.035 Glidewire was brought onto the operative field and used to cannulate the cystic duct. In trahepatic cholangiogram demonstrated that again the filling defect was distal in the common bile duct near the ampulla. A ureteral basket was then advanced through the glide catheter which was then used to grasp the stone which was able to be removed from the cystic duct. Repeat imaging demonstrated no evidence of filling defects within the common bile duct. The cystic duct was then formally clipped laparoscopic clips and incised laparoscopic scissors. The cystic artery was also clipped Scopic clips and incised laparoscopic scissors. The gallbladder was carefully dissected away from the gallbladder fossa with Bovie cauterization while Bovie cauterization was used to maintain hemostasis. Once the gallbladder was dissected free it was removed from the abdomen via an Endobag. Reinspection of the right upper quadrant demonstrated maintenance of hemostasis and right upper quadrant was briefly irrigated with normal saline solution. All ports were then removed from the abdomen after the abdomen was desufflated. The rectus fascia for the subumbilical incision was reapproximated with a [id number] 0 Vicryl suture. The subcutaneous tissue was reapproximated with a 3-0 Vicryl suture and the epidermal and dermal layers for the remaining incisions were closed with 4-0 Monocryl sutures. Needle, sponge, and instrument counts were correct 2 and the incisions were covered with Steri-Strips and Band-Aids. The patient was aroused from IV sedation, extubated in the operating room without complication, and transported to the recovery room in stable condition.
[2019-03-07 10:32] LABS: Lipase 45 Units/L (11-82)
--- NOTE | 2019-03-07 10:34 | Event Note ---
Date of Encounter: 03/07/19 Time of Encounter: 10:33 The patient successfully underwent a laparoscopic cholecystectomy with intraoperative cholangiogram today. Intraoperative glandular demonstrated legal cholelithiasis and the stones were able to be removed laparoscopically. Recommend observation and repeating amylase and lipase in a.m. to ensure no post operative increase in his pancreatic enzymes. Okay to advance diet.
[2019-03-07] MEDS ORDERED: Ketorolac 30 MG/ML VIAL IVP ONE (10:41)
[2019-03-07] MEDS ORDERED: *HR* Promethazine 25 MG/ML VIAL IVP PRN (10:41)
[2019-03-07] MEDS ORDERED: Ondansetron 4 MG/2 ML VIAL IVP ONE (10:41)
[2019-03-07] MEDS ORDERED: *HR* OxyCODONE Immed Rel 5 MG TABLET PO PRN (10:41)
[2019-03-07] MEDS ORDERED: *HR* HYDROmorphone (PF) 1 MG/ML SYRINGE IVP PRN (10:41)
[2019-03-07] MEDS ORDERED: OXYCODONE Oral CONC 10 MG/0.5 ML ORAL.SYG SL PRN (11:39)
[2019-03-07] MEDS ORDERED: Naloxone 0.4 MG/ML INJ IVP PRN (11:39)
[2019-03-07] MEDS ORDERED: Simethicone 80 MG TAB.CHEW PO PRN (11:39)
[2019-03-07] MEDS ORDERED: RANITIDINE HCL 75 MG PO PRN (11:39)
[2019-03-07] MEDS ORDERED: Ringers Solution, Lactated 1,000 ML IVC SCH (11:39)
--- NOTE | 2019-03-07 11:46 | Anesthesia Evaluation Post Op ---
Date of Encounter: 03/07/19 Time of Encounter: 11:15 - Vital Signs Vital Signs: Vital Signs/O2 Sat, Most Current Temp Pulse Resp BP Pulse Ox 98.0 F 58 16 117/89 100 03/07/19 11:18 03/07/19 11:18 03/07/19 11:18 03/07/19 11:18 03/07/19 11:18 - Lungs Lungs: Clear Ascult./Percussion - Airway Airway: Non-obstructed - Cardiovascular Regular Rate, Baseline Rhythm - Mental Status Mental Status: Alert & Oriented, Answers Appropriately - Pain Pain Scale used: Numeric (1 - 10) (3 tolerable), AguilaIndu (Faces), Unable to assess - Nausea Vomiting Nausea Vomiting: Not Present - Hydration Hydration: Tolerates oral liquids, Ice chips, Has not voided - Discharge PostOp Status: Transfer Patient to floor
[2019-03-07] MEDS: Ketorolac 30 MG/ML VIAL IVP PRN (13:18)
--- NOTE | 2019-03-07 15:42 | Internal Med Progress Note ---
Hospitalist Progress Note - Encounter Date of Encounter: 03/07/19 Time of Encounter: 10:00 - Subjective Interval History: s/p laparoscopic cholecystectomy this am - Exam Vitals: Temp Pulse Resp BP Pulse Ox 97.7 F 64 16 115/75 100 03/07/19 14:24 03/07/19 14:24 03/07/19 14:24 03/07/19 14:24 03/07/19 14:24 Exam: GEn: NAD Eyes: Sclera is white. There is no discharge from eyes. ENMT: Oral/pharyngeal mucosa is normal in appearance. There is no discharge from nose or ears. Respiratory: Normal breath sounds with no crackles and wheezes bilaterally. CV: Heart is regular with no gallop or murmur. GI: Abdomen is flat and soft with no palpable mass or visceromegaly. Scars from lap sparkle in place : There is no tenderness in patient's flanks bilaterally. Neuro exam: He has good strength in upper and lower extremities. He has normal eye movements. Psychiatric: He has normal affect. His thought process is appropriate to the situation. - Assessment and Plan (1) Pancreatitis Current Visit: Yes Status: Acute Assessment and Plan: Pt has acute pancreatitis likely secondary to gall stones. On presentation lipase greater than 1800, triglyceride 160 ETOH negative - gallbladder ultrasound shows cholelithiasis, Multiple small mobile shadowing echogenic foci consistent with gallstones, CBD 4 mm - CT A/P with nonobstructing calculus and left kidney He is s/p laparoscopic cholecystectomy and laparoscopic common bile duct explor ation with removal of choledocholithiasis. Resume diet. Lipase trending down today. Repeat amylase and lipase in am (2) Choledocholithiasis Current Visit: Yes Status: Acute Assessment and Plan: s/p laparoscopic cholecystectomy this am and laparoscopic common bile duct exploration with removal of choledocholithiasis. (3) Hepatitis C Current Visit: Yes Status: Chronic Assessment and Plan: Past history cleared after treatment (4) Substance abuse Current Visit: Yes Status: Acute Assessment and Plan: History of substance abuse denies any recent use urine tox screen negative (5) DVT prophylaxis Current Visit: Yes Status: Acute Assessment and Plan: SCD - Time Spent with Patient Total time spent is greater than 50% in coordination of care (as documented) at patient's floor/unit and/or counseling patient: Internal Medicine: Result - Labs CBC & Chem 7: 06/19/19 05:43 03/07/19 05:43 Labs: Short CBC 03/07/19 Range/Units 05:43 WBC 4.7 D (4.3-11.1) K/mcL Hgb 11.0 L D (12.9-16.9) g/dL Hct 33.8 L (37.5-50.1) % Plt Count 151 (140-400) K/mcL Neutrophils # 1.6 (1.6-8.9) K/mcL BMP 03/07/19 05:43 Sodium 139 Potassium 3.6 Chloride 107 Carbon Dioxide 29 BUN 8 Creatinine 0.76 Glucose 96 Calcium 9.0 Liver Function 03/07/19 Range/Units 05:43 Total Bilirubin 1.1 H (0.3-1.0) mg/dL Direct Bilirubin 0.3 H (0.0-0.2) mg/dL AST 24 (13-39) Units/L ALT 79 H (7-52) Units/L Alkaline Phosphatase 92 (34-104) Units/L Albumin 3.5 (3.5-5.7) g/dL - ABG Interpretation ABG results: PT/INR, D-dimer PT 11.9 Seconds (9.4-12.1) 03/06/19 04:58 - Impressions Impressions Cholangiogram,Operative 03/07/19 09:35 FINDINGS/IMPRESSION: Intraoperative cholangiogram was performed. The 1st 2 images demonstrate rounded filling defects distal common bile duct suspicious for stones. The final images of the study do not demonstrate any further filling defects within the common bile duct. D/ / Aryan Art / Aryan Art Interpreting Provider: Aryan Art - VTE Documentation of Mechanical Device: Intermittent pneumatic compression device Consult Discharge Plan - Plan Referrals: Alessia Oliver, [employer]ONEMASON HELPER [Advanced Practice Nurse] - ____ (1) Pancreatitis Qualifiers: Chronicity: acute Pancreatitis type: biliary Acute pancreatitis complication: unspecified Qualified Code(s): K85.10 - Biliary acute pancreatitis without necrosis or infection (3) Hepatitis C Qualifiers: Viral hepatitis chronicity: chronic
[2019-03-07] MEDS: *HR* Heparin 5,000 UNIT/ML VIAL SQ SCH (17:39)
[2019-03-07] MEDS ORDERED: NON-FORMULARY MEDICATION 1 EACH EACH (Buprenorphine Hcl/Naloxone Hcl [Buprenorphin-Naloxon PO SCH (21:00)
[2019-03-08] MEDS: Ketorolac 30 MG/ML VIAL IVP PRN ×2 (05:04→11:56)
[2019-03-08] MEDS: *HR* Heparin 5,000 UNIT/ML VIAL SQ SCH (05:05)
[2019-03-08 05:55] LABS: Basophils % 0.2 %; Eosinophils % 0.1 %; Hematocrit 35.6 % (37.5-50.1); Hemoglobin 11.8 g/dL (12.9-16.9); Immature Granulocytes % 0.4 % (0-4); Lymphocytes % 12.5 %; Mean Corpuscular HGB Conc 33.1 g/dL (31.6-35.5); Mean Corpuscular Hemoglobin 28.6 pg (28.0-33.3); Mean Corpuscular Volume 86.4 fL (83.0-100.0); Mean Platelet Volume 10.8 fL (9.4-12.4); Monocytes % 7.8 %; Neutrophils # 10.4 K/mcL (1.6-8.9); Platelet Count 173 K/mcL (140-400); Red Blood Count 4.12 M/mcL (4.19-5.50); Red Cell Distribution Width 13.1 % (11.5-14.5)
[2019-03-08 06:06] LABS: Lymphocytes # 1.7 K/mcL (0.6-4.6); White Blood Count 13.2 K/mcL (4.3-11.1)
[2019-03-08 06:18] LABS: Amylase 51 Units/L (29-103); Lipase 27 Units/L (11-82)
[2019-03-08 06:19] LABS: BUN/Creatinine Ratio 11 (6-26); Blood Urea Nitrogen 9 mg/dL (6-20); Calcium 9.1 mg/dL (8.6-10.3); Carbon Dioxide 26 mEq/L (23-29); Chloride 105 mEq/L (98-107); Glucose 125 mg/dL (70-105); Osmolality,Calculated 296 (280-300); Potassium 3.7 mEq/L (3.5-5.1); Sodium 143 mEq/L (136-145); eGFR For African Americans > 60 (> 60); eGFR For Non-African Americans > 60 (> 60)
[2019-03-08] MEDS: *HR* Buprenorphine HCl 8 MG TAB.SUBL SL SCH (08:40)
--- NOTE | 2019-03-08 08:57 | Internal Med Progress Note ---
Hospitalist Progress Note - Encounter Date of Encounter: 03/08/19 Time of Encounter: 08:00 - Exam Vitals: Temp Pulse Resp BP Pulse Ox 98.1 F 74 16 100/58 98 03/08/19 06:58 03/08/19 06:58 03/08/19 06:58 03/08/19 06:58 03/08/19 06:58 Exam: GEn: NAD Eyes: Sclera is white. There is no discharge from eyes. ENMT: Oral/pharyngeal mucosa is normal in appearance. There is no discharge from nose or ears. Respiratory: Normal breath sounds with no crackles and wheezes bilaterally. CV: Heart is regular with no gallop or murmur. GI: Abdomen is flat and soft with no palpable mass or visceromegaly. Scars from lap sparkle in place : There is no tenderness in patient's flanks bilaterally. Neuro exam: He has good strength in upper and lower extremities. He has normal eye movements. Psychiatric: He has normal affect. His thought process is appropriate to the situation. - Assessment and Plan (1) Pancreatitis Current Visit: Yes Status: Acute Assessment and Plan: Pt has acute pancreatitis likely secondary to gall stones. On presentation lipase greater than 1800, triglyceride 160 ETOH negative - gallbladder ultrasound shows cholelithiasis, Multiple small mobile shadowing echogenic foci consistent with gallstones, CBD 4 mm - CT A/P with nonobstructing calculus and left kidney He is s/p laparoscopic cholecystectomy and laparoscopic common bile duct exploration with removal of choledocholithiasis. Resume diet. Lipase trending down today. Repeat amylase and lipase in am (2) Choledocholithiasis Current Visit: Yes Status: Acute Assessment and Plan: s/p laparoscopic cholecystectomy this am and laparoscopic common bile duct exploration with removal of choledocholithiasis. (3) Hepatitis C Current Visit: Yes Status: Chronic Assessment and Plan: Past history cleared after treatment (4) Substance abuse Current Visit: Yes Status: Acute Assessment and Plan: History of substance abuse denies any recent use urine tox screen negative (5) DVT prophylaxis Current Visit: Yes Status: Acute Assessment and Plan: SCD - Time Spent with Patient Total time spent is greater than 50% in coordination of care (as documented) at patient's floor/unit and/or counseling patient: Internal Medicine: Result - Labs CBC & Chem 7: 03/08/19 04:30 03/08/19 04:30 Labs: Short CBC 03/08/19 Range/Units 04:30 WBC 13.2 H D (4.3-11.1) K/mcL Hgb 11.8 L (12.9-16.9) g/dL Hct 35.6 L (37.5-50.1) % Plt Count 173 (140-400) K/mcL Neutrophils # 10.4 H (1.6-8.9) K/mcL BMP 03/07/19 03/08/19 05:43 04:30 Sodium 139 143 Potassium 3.6 3.7 Chloride 107 105 Carbon Dioxide 29 26 BUN 8 9 Creatinine 0.76 0.79 Glucose 96 125 H Calcium 9.0 9.1 Liver Function 03/07/19 Range/Units 05:43 Total Bilirubin 1.1 H (0.3-1.0) mg/dL Direct Bilirubin 0.3 H (0.0-0.2) mg/dL AST 24 (13-39) Units/L ALT 79 H (7-52) Units/L Alkaline Phosphatase 92 (34-104) Units/L Albumin 3.5 (3.5-5.7) g/dL - ABG Interpretation ABG results: PT/INR, D-dimer PT 11.9 Seconds (9.4-12.1) 03/06/19 04:58 - Impressions Impressions Cholangiogram,Operative 03/07/19 09:35 FINDINGS/IMPRESSION: Intraoperative cholangiogram was performed. The 1st 2 images demonstrate rounded filling defects distal common bile duct suspicious for stones. The final images of the study do not demonstrate any further filling defects within the common bile duct. D/ / Aryan Art / Aryan Art Interpreting Provider: Aryan Art - VTE Documentation of Mechanical Device: Intermittent pneumatic compression device Consult Discharge Plan - Plan Referrals: Alessia Oliver, [employer] E[employer]IPMENT SERVICER [Advanced Practice Nurse] - (1) Pancreatitis Qualifiers: Chronicity: acute Pancreatitis type: biliary Acute pancreatitis complication: unspecified Qualified Code(s): K85.10 - Biliary acute pancreatitis without necrosis or infection (3) Hepatitis C Qualifiers: Viral hepatitis chronicity: chronic
[2019-03-08] MEDS ORDERED: Pantoprazole 40 MG VIAL IVP SCH (09:00)
[2019-03-08 10:32] VITALS: BP 110/62
[2019-03-08 10:48] LABS: Immunoglobulin G Subclass 4 96 mg/dL (1-123)
[2019-03-08 10:58] LABS: ANA IgG by ELISA NONE DETECTED (None Detected)
--- NOTE | 2019-03-08 14:17 | Discharge Summary ---
Date of Encounter: 03/08/19 Time of Encounter: 14:00 - Discharge Diagnosis (1) Pancreatitis Priority: Primary Status: Acute Assessment and Plan: 33 year man who has been dealing with abdominal pain for the past 6 months, predominantly epigastric and occasionally in the right upper quadrant. It is frequently postprandial which has caused some weight loss from avoidance of food. It is occasionally associated with nausea. He takes OTC antacids for relief usually. He reports having undergone endoscopy and ultrasound for evaluation of this problem but were unrevealing. He came in today with an acute episode of severe epigastalgia that led him to become diaphoretic. He says it has been present for the past 4 days but this morning it hit him severely and knocked him down to his knees associated with tingling in his extremities, chills and feeling cold. In the ER he declined analgesics as it had improved but lab work revealed a lipase >1800 He was assessed acute pancreatitis likely secondary to gall stones. On presentat ion lipase greater than 1800 with gallbladder ultrasound shows cholelithiasis. He was kept NPO and started on IV fluids and pain control. He underwent a laparoscopic cholecystectomy and laparoscopic common bile duct exploration with removal of choledocholithiasis. Lipase trended down and he was able to restart a diet. He was discharged to complete a course fo ciprofloxacin. 35 minutes was spent discharging this patient Qualifiers: Chronicity: acute Pancreatitis type: biliary Acute pancreatitis complication: unspecified Qualified Code(s): K85.10 - Biliary acute pancreatitis without necrosis or infection (2) Choledocholithiasis Priority: Primary Status: Acute Assessment and Plan: s/p laparoscopic cholecystectomy this am and laparoscopic common bile duct exploration with removal of choledocholithiasis. (3) Hepatitis C Priority: Primary Status: Chronic Qualifiers: Viral hepatitis chronicity: chronic Qualified Code(s): B18.2 - Chronic viral hepatitis C (4) Substance abuse Priority: Primary Status: Acute (5) DVT prophylaxis Priority: Primary Status: Acute Hospital course: Mr. Peterson is a 33 year old male - Time Spent with Patient Total time spent providing and/or coordinating discharge services: - Discharge Medications Prescriptions: New Ciprofloxacin [Cipro] 500 mg PO BID 7 Days #14 tablet Ibuprofen 800 mg PO Q8H PRN #30 tablet PRN Reason: Postsurgical pain Continued Ranitidine HCl [Zantac 75] 75 mg PO DAILY PRN PRN Reason: Heartburn Buprenorphine HCl/Naloxone HCl [Buprenorphin-Naloxon 8-2 mg Sl] 1 tab PO BID Simethicone [Gas-X] 80 mg PO PRN PRN PRN Reason: GAS Home Medications: Buprenorphine HCl/Naloxone HCl [Buprenorphin-Naloxon 8-2 mg Sl] 1 tab PO BID 03/06/19 [History] Ranitidine HCl [Zantac 75] 75 mg PO DAILY PRN 03/06/19 [History] Simethicone [Gas-X] 80 mg PO PRN PRN 03/06/19 [History] Ciprofloxacin [Cipro] 500 mg PO BID 7 Days #14 tablet 03/08/19 [Rx] Ibuprofen 800 mg PO Q8H PRN #30 tablet 03/08/19 [Rx] Allergies/Adverse Reactions: Allergy/AdvReac Type Severity Reaction Status Date / Time No Known Allergies Allergy Verified 03/06/19 14:35 Date of admission: 03/06/19 14:17 Primary care physician: PCP NONE Consults: 03/05/19 20:39 Consult to Gastroenterology [CONS] Stat Consulting Provider: Gastroenterology [facility] Reason for Consult: gallstone pancreatitis Call Completed: No 03/05/19 22:20 Consult to Nutrition [CONS] Routine Comment: Consulting Provider: NUTRITION Reason for Dietary Consult: MST Score 03/06/19 14:16 Consult to Surgery [CONS] Routine Consulting Provider: Acute Care Surgery Reason for Consult: Cholelithiasis Time Notified: 14:17 Call Completed: Yes - Constitutional Vitals: Temp Pulse Resp BP Pulse Ox 98.3 F 78 16 110/62 99 03/08/19 10:31 03/08/19 10:31 03/08/19 10:31 03/08/19 10:31 03/08/19 10:31 Exam: GEn: NAD Eyes: Sclera is white. There is no discharge from eyes. ENMT: Oral/pharyngeal mucosa is normal in appearance. There is no discharge from nose or ears. Respiratory: Normal breath sounds with no crackles and wheezes bilaterally. CV: Heart is regular with no gallop or murmur. GI: Abdomen is flat and soft with no palpable mass or visceromegaly. Scars from lap sparkle in place : There is no tenderness in patient's flanks bilaterally. Neuro exam: He has good strength in upper and lower extremities. He has normal eye movements. Psychiatric: He has normal affect. His thought process is appropriate to the situation. - Patient Status Disposition: Home, Self-Care Condition: Good - Discharge Instructions Instructions: Laparoscopic Cholecystectomy (DC) Follow Up With: Naty Fox [Partnered Physician] - 03/27/19 8:30 am Alessia Oliver CNP [Advanced Practice Nurse] - Additional Instructions: General Surgical Discharge Instructions 1. No pushing, pulling, or lifting greater than 15 lbs for 2-4 weeks (depending upon procedure). 2. You may shower beginning today, but no tub baths, soaking, or swimming for 2 weeks. 3. You may resume driving when you are off narcotics and are safe to react in a car. 4. Take ibuprofen every 8 hours for discomfort. Take your chronic suboxone as directed. 5. Take stool softeners (Colace) or a water based laxative (Miralax) while taking narcotics. You may hold for loose stools. 6. Report any fevers greater than 100.5F, increase abdominal discomfort, drainage that looks like pus, increased redness or pain at the surgical site, or any vomiting. 7. Report any pain in the calves, shortness of breath, or rapid heartbeat. 8. Follow-up in the office as directed. 9. If you were prescribed antibiotics, do not stop them without talking to your provider. - VTE Documentation of Mechanical Device: Intermittent pneumatic compression device
--- NOTE | 2019-03-08 14:53 | Event Note ---
Date of Encounter: 03/08/19 Time of Encounter: 14:52 Seen and examined on morning rounds per attending surgeon. OK for d/c. D/c information placed per d/c plan.
== END 2019-03-08 15:56 | disposition home or self-care (01) | DRG 417 ==
LOC: EMEROOARM 17:56 → 3ANU 17:56
PROVIDERS: ADMIT Family Medicine; ATTEND Family Medicine